=== PATIENT | female | born 1960 | race Caucasian/White ===

== ENCOUNTER → 2020-08-03 | Outpatient (CLI) | payer OTHER ==
[~2020-08-03] MED LIST: AMLO-211 PO; ASPI81TA45 PO; ATOR40TA78 PO; CHRO1TAB7 PO; CLOP75TA PO; CYCL10TA2 PO; LABE300T2 PO; LOSA1TAB19 PO; [UNRECOGNIZED DRUG - OTHER]
== END | disposition home or self-care (01) ==
LOC: CFH 08:16
PROVIDERS: ATTEND Registered Nurse
DX: I10 Essential (primary) hypertension (principal)
CPT/HCPCS: 93306